=== PATIENT | male | born 1955 | race Caucasian/White ===

== ENCOUNTER 2019-02-28 08:40 | Day surgery (SDC) | payer OTHER ==
[~2019-02-28] VITALS: Ht 175.3 cm; Wt 104.3 kg
[~2019-02-28 08:40] MED LIST: ACET65TA; ALEV220C2 PO; ALEV220T22 PO; CEFT500T; COMBVENT; COUM7.5T PO; FLOM0.4C39 PO; METF500T13 PO; METF750T41 PO; NS 1,000 ML IV ONE; No Historical Meds; PERC5TAB12 PO; PRED10TA2; TYLE325T5 PO; TYLENOL #3; ZITH500T
[2019-02-28] MEDS ORDERED: LIDOCAINE 2% INJ 100 MG/5 ML SDV (FOR ANES.) As Ordered ONE (11:18)
[2019-02-28] MEDS ORDERED: propofoL 200 MG/20 ML VIAL As Ordered ONE (11:18)
--- NOTE | 2019-02-28 11:34 | ROOR ---
Patient Name: Krishna Tipton Procedure Date: 02/28/2019 11:09 AM Date of : 1955 Age: 63 Room: [facility] Gender: Male Note Status: Finalized Procedure: Total Colonoscopy + Biopsy Polypectomy + Hemoclips Indications: Colon cancer screening in patient at increased risk: Colorectal cancer in mother Providers: Phill Villafana MD Referring MD: ALTAGRACIA DUDLEY JR, MD Requesting Provider: Medicines: Monitored Anesthesia Care Complications: No immediate complications. Procedure: Pre-Anesthesia Assessment: - The heart rate, respiratory rate, oxygen saturations, blood pressure, adequacy of pulmonary ventilation, and response to care were monitored throughout the procedure. The Colonoscope was introduced through the anus and advanced to the cecum, identified by appendiceal orifice and ileocecal valve. The colonoscopy was performed without difficulty. The patient tolerated the procedure well. The quality of the bowel preparation was excellent. Findings: The perianal and digital rectal examinations were normal. Non-bleeding internal hemorrhoids were found during retroflexion. The hemorrhoids were small and Grade I (internal hemorrhoids that do not prolapse). A small polyp was found in the cecum. The polyp was sessile. The polyp was removed with a jumbo cold forceps. Resection and retrieval were complete. To prevent bleeding after the polypectomy, three hemostatic clips were successfully placed (MR conditional). There was no bleeding at the end of the procedure. A small polyp was found in the rectum. The polyp was sessile. The polyp was removed with a jumbo cold forceps. Resection and retrieval were complete. The exam was otherwise without abnormality on direct and retroflexion views. Impression: - Non-bleeding internal hemorrhoids. - One small polyp in the cecum, removed with a jumbo cold forceps. Resected and retrieved. Clips (MR conditional) were placed. - One small polyp in the rectum, removed with a jumbo cold forceps. Resected and retrieved. - The examination was otherwise normal on direct and retroflexion views. - The exam was otherwise normal to the cecum. Recommendation: - Patient has a contact number available for emergencies. The signs and symptoms of potential delayed complications were discussed with the patient. Return to normal activities tomorrow. Written discharge instructions were provided to the patient. - High fiber diet. - Discharge patient to home. - Continue present medications. - Await pathology results. - Telephone GI clinic for pathology results in 1 week. - Repeat colonoscopy in 5 years for surveillance based on pathology results. - Return to referring physician. - Check Portal Online for Path Results.([email or web address] - The findings and recommendations were discussed with the patient's family. Phill Villafana MD Phill Villafana MD 02/28/2019 11:33:27 AM Electronically signed by Phill Villafana MD Number of Addenda: 0 Note Initiated On: 02/28/2019 11:09 AM Estimated Blood Loss: Estimated blood loss: none.
[2019-02-28 12:05] VITALS: BP 136/69
== END 2019-02-28 12:05 | disposition home or self-care (01) ==
LOC: M OPP 08:40
PROVIDERS: ATTEND Internal Medicine Gastroenterology
DX: K64.0 First degree hemorrhoids (principal); D12.0 Benign neoplasm of cecum; K62.1 Rectal polyp; Z12.11 Encounter for screening for malignant neoplasm of colon; Z80.0 Family history of malignant neoplasm of digestive organs; Z87.891 Personal history of nicotine dependence; Z79.84 Long term (current) use of oral hypoglycemic drugs; Z79.899 Other long term (current) drug therapy

== ENCOUNTER → 2020-07-04 | Outpatient (CLI) | payer OTHER ==
[~2020-07-04] MED LIST changes: -COUM7.5T PO; +COUM7.5T6 PO; -NS 1,000 ML IV ONE
--- NOTE | 2020-07-05 04:24 | REP ---
INDICATION: BILATERAL SHOULDER AND ARM PAIN COMPARISON: None. TECHNIQUE: AP, lateral, flexion/extension, bilateral oblique, and open-mouth views. FINDINGS: Alignment and lordosis is maintained. There is no evidence for acute fracture / compression injury or subluxation. Bridging osteophytes are identified at the C4-5 and C5-6 levels with mild endplate sclerosis and minimal disc space narrowing. Endplate sclerosis and disc space narrowing also identified at C6-7. IMPRESSION: Moderate/advanced degenerative spondylosis primarily involving mid to lower cervical spine. <Electronically signed by Bran Cunha > 07/05/20 [id number]
== END ==
LOC: M WUC 15:27
PROVIDERS: ATTEND Internal Medicine
DX: M25.511 Pain in right shoulder (principal); M25.512 Pain in left shoulder; M47.812 Spondylosis without myelopathy or radiculopathy, cervical region

== ENCOUNTER → 2020-09-25 | Outpatient (REF) | payer MEDICARE ==
[2020-09-26 14:09] LABS: ANTINUCLEAR ANTIBODIES DIRECT Negative (Negative); Lyme Disease IgG/IgM Antibodie <0.91 ISR (0.00-0.90); Lyme Disease IgM Ab Quantitati <0.80 index (0.00-0.79)
== END ==
LOC: M LAB REF 12:17
PROVIDERS: ATTEND Physician Assistant Medical
DX: M79.10 Myalgia, unspecified site (principal)

== ENCOUNTER → 2021-10-25 | Outpatient (REF) | payer MEDICARE ==
[2021-10-25 17:32] LABS: APPEARANCE, URINE CLEAR (CLEAR); BACTERIA, URINE AUTO NEGATIVE (NEGATIVE); BILIRUBIN, URINE AUTO NEGATIVE (NEGATIVE); BLOOD, URINE BLOOD NEGATIVE (NEGATIVE); COLOR, URINE YELLOW (YELLOW); GLUCOSE, URINE (UA) AUTO NEGATIVE (NEGATIVE); KETONE, URINE AUTO NEGATIVE (NEGATIVE); LEUKOCYTE ESTERASE, URINE AUTO NEGATIVE (NEGATIVE); MUCUS, URINE SMALL (NEGATIVE); NITRITE, URINE AUTO NEGATIVE (NEGATIVE); PROTEIN, URINE AUTO NEGATIVE (NEGATIVE); RBC, URINE AUTO 0 /HPF (0-3); SPECIFIC GRAVITY URINE AUTO 1.013 (1.002-1.035); SQUAMOUS EPITHELIAL CELL UR AU 0 /HPF (0-6); UROBILINOGEN, URINE AUTO 0.2 mg/dL (0.0-2.0); WBC, URINE AUTO 0 /HPF (0-3)
== END ==
LOC: M SMT 16:34
PROVIDERS: ATTEND Physician Assistant
DX: R31.0 Gross hematuria (principal)

== ENCOUNTER → 2021-12-06 | Outpatient (CLI) | payer MEDICARE | LOC: M WUC 15:02 | PROVIDERS: ATTEND Physician Assistant | DX: M25.532 Pain in left wrist (principal) ==

== ENCOUNTER 2023-12-26 09:04 | Emergency (ER) | payer MEDICARE ==
[~2023-12-26] VITALS: Ht 177.8 cm; Wt 102.3 kg
[2023-12-26] MEDS ORDERED: ATOR1TAB21 PO (09:25)
[2023-12-26] MEDS: KETOROLAC 30 MG/ML 1ML VIAL IV ONE (11:51)
[2023-12-26] MEDS: oxyCODONE 5MG TAB PO ONE (11:52)
[2023-12-26] MEDS ORDERED: HOME MED LIST COMPLETE! XX SCH (12:55)
[2023-12-26] MEDS ORDERED: SENN1TAB96 PO (12:56)
[2023-12-26] MEDS ORDERED: OXYC10TA12 PO (12:56)
[2023-12-26] MEDS ORDERED: KETO10TAB PO (12:56)
[2023-12-26 13:12] VITALS: BP 150/106
[2023-12-26 13:18] VITALS: TEMP 97.8; O2SAT 96
== END 2023-12-26 13:23 | disposition home or self-care (01) ==
LOC: M ED 09:04 → EDBD 09:04 → M ED 13:23
DX: S22.42XA Multiple fractures of ribs, left side, initial encounter for closed fracture (principal); W01.0XXA Fall on same level from slipping, tripping and stumbling without subsequent striking against object, initial encounter; E66.9 Obesity, unspecified; N40.0 Benign prostatic hyperplasia without lower urinary tract symptoms; Z79.02 Long term (current) use of antithrombotics/antiplatelets; Z79.4 Long term (current) use of insulin; Z79.899 Other long term (current) drug therapy; Y92.9 Unspecified place or not applicable; Y93.89 Activity, other specified; Y99.0 Civilian activity done for income or pay
CPT/HCPCS: 71101; 80047; 96374; 99285; J1885

== ENCOUNTER 2024-03-07 07:33 | Day surgery (SDC) | payer MEDICARE ==
[~2024-03-07] VITALS: Ht 175.3 cm; Wt 100.9 kg
[~2024-03-07 07:33] MED LIST changes: +ATOR1TAB21 PO; +IBUP1TAB7 PO; +KETO10TAB PO; +NS 1,000 ML IV ONE; +OXYC10TA12 PO; +SENN1TAB96 PO; +propofoL 200 MG/20 ML VIAL As Ordered ONE
[2024-03-07 09:13] VITALS: TEMP 98.1
[2024-03-07 09:35] VITALS: BP 128/61; O2SAT 96
== END 2024-03-07 09:42 | disposition home or self-care (01) ==
LOC: M OPP 07:33
PROVIDERS: ATTEND Internal Medicine Gastroenterology
DX: Z86.010 Personal history of colon polyps (principal); Z80.0 Family history of malignant neoplasm of digestive organs; D12.0 Benign neoplasm of cecum; D12.2 Benign neoplasm of ascending colon; K64.0 First degree hemorrhoids; K57.30 Diverticulosis of large intestine without perforation or abscess without bleeding; Z79.02 Long term (current) use of antithrombotics/antiplatelets; Z79.1 Long term (current) use of non-steroidal anti-inflammatories (NSAID); Z79.83 Long term (current) use of bisphosphonates; Z79.84 Long term (current) use of oral hypoglycemic drugs

== ENCOUNTER → 2024-09-12 | Outpatient (CLI) | payer MEDICARE ==
[~2024-09-12] MED LIST changes: -NS 1,000 ML IV ONE; -propofoL 200 MG/20 ML VIAL As Ordered ONE
== END ==
LOC: M WUC 14:36
PROVIDERS: ATTEND Nurse Practitioner Family
DX: M19.071 Primary osteoarthritis, right ankle and foot (principal)

== ENCOUNTER → 2024-09-12 | Outpatient (REF) | payer MEDICARE ==
[2024-09-12 14:36] LABS: URIC ACID 3.8 MG/DL (3.7-9.2)
[2024-09-12 14:39] LABS: C REACTIVE PROTEIN QUANTITATIV < 0.50 MG/DL (<1.0)
== END ==
LOC: M LAB REF 12:45
PROVIDERS: ATTEND Nurse Practitioner Family
DX: M25.571 Pain in right ankle and joints of right foot (principal)